=== PATIENT | male | born 1945 | race Caucasian/White ===

== ENCOUNTER → 2020-09-12 | Outpatient (CLI) | payer MEDICARE, BC ==
[~2020-09-12] MED LIST: CLARITIN10 M2 PO; FENOFIBRATE160 MG PO; HYDROCHLOROTHIA25 MG PO; ISOSORBIDE MONO30 MG PO; LIPITOR TAB 2020 MG PO; LIPITOR20 MG PO; MULTAQ 400 MG400 MG PO; NITROSTAT0.4 MG SL; NORVASC10 MG PO; PRAVASTATIN SOD40 MG PO; PROAIR HFA8.5 GM INH; SINGULAIR10 MG PO; ST. JOSEPH ASPI81 M1 PO; SYMBICORT 80-10.2 GM INH; VESICARE5 MG PO; VITAMIN D350 MC3 PO; XARELTO20 MG PO; ZESTRIL40 MG PO
[2020-09-12 17:36] LABS: HEMOGLOBIN 14.5 gm/dl (14.0-17.5); RED BLOOD COUNT 4.57 M/UL (4.20-5.50); WHITE BLOOD COUNT 7.9 K/UL (4.5-11.0)
== END ==
LOC: LAB 16:59
PROVIDERS: Emergency Medicine
DX: I12.9 Hypertensive chronic kidney disease with stage 1 through stage 4 chronic kidney disease, or unspecified chronic kidney disease (principal); N18.2 Chronic kidney disease, stage 2 (mild); E78.2 Mixed hyperlipidemia; M10.071 Idiopathic gout, right ankle and foot; E55.9 Vitamin D deficiency, unspecified; R73.09 Other abnormal glucose; M54.2 Cervicalgia; I25.10 Atherosclerotic heart disease of native coronary artery without angina pectoris; R06.02 Shortness of breath; Z91.013 Allergy to seafood
CPT/HCPCS: 36415; 71046; 80053; 83880; 85025; 85379; 93005

== ENCOUNTER 2020-09-13 10:37 | Observation (INO) | payer MEDICARE, BC ==
[~2020-09-13] VITALS: Ht 172.7 cm; Wt 104.3 kg
[2020-09-13 11:44] LABS: HEMOGLOBIN 14.5 gm/dl (14.0-17.5); RED BLOOD COUNT 4.6 M/UL (4.20-5.50); WHITE BLOOD COUNT 7.2 K/UL (4.5-11.0)
[2020-09-13 12:30] LABS: BUN/CREATININE RATIO 13 (0-10)
[2020-09-13] MEDS ORDERED: LIPITOR20 MG PO (13:31)
[2020-09-13] MEDS ORDERED: XARELTO20 MG PO (13:31)
[2020-09-13] MEDS ORDERED: MULTAQ 400 MG400 MG PO (13:31)
[2020-09-13] MEDS ORDERED: FENOFIBRATE160 MG PO (13:31)
[2020-09-13] MEDS ORDERED: NORVASC10 MG PO (13:32)
[2020-09-13] MEDS ORDERED: PRAVASTATIN SOD40 MG PO (13:32)
[2020-09-13] MEDS ORDERED: ZESTRIL40 MG PO (13:32)
[2020-09-13] MEDS ORDERED: PROAIR HFA8.5 GM INH (13:33)
[2020-09-13] MEDS ORDERED: ISOSORBIDE MONO30 MG PO (13:33)
[2020-09-13] MEDS ORDERED: SYMBICORT 80-10.2 GM INH (13:33)
[2020-09-13] MEDS ORDERED: HYDROCHLOROTHIA25 MG PO (13:35)
[2020-09-14 01:03] LABS: HEMOGLOBIN 14.5 gm/dl (14.0-17.5); RED BLOOD COUNT 4.57 M/UL (4.20-5.50); WHITE BLOOD COUNT 7.8 K/UL (4.5-11.0)
[2020-10-14] MEDS ORDERED: CLARITIN10 M2 PO (08:36)
[2020-10-14] MEDS ORDERED: ST. JOSEPH ASPI81 M1 PO (08:36)
[2020-10-14] MEDS ORDERED: SINGULAIR10 MG PO (08:37)
[2020-10-14] MEDS ORDERED: VESICARE5 MG PO (08:37)
[2020-10-14] MEDS ORDERED: NITROSTAT0.4 MG SL (08:37)
== END 2020-09-14 14:30 | disposition home or self-care (01) ==
LOC: ER1 10:37 → CDU 13:19 → MED SURG 4 21:40
PROVIDERS: Physician Assistant; Physician Assistant Medical; ADMIT Internal Medicine
DX: I48.19 Other persistent atrial fibrillation (principal); I20.9 Angina pectoris, unspecified; I49.3 Ventricular premature depolarization; I47.2 Ventricular tachycardia; I10 Essential (primary) hypertension; E87.6 Hypokalemia; J90 Pleural effusion, not elsewhere classified; E78.5 Hyperlipidemia, unspecified; J45.909 Unspecified asthma, uncomplicated; I35.0 Nonrheumatic aortic (valve) stenosis; R79.1 Abnormal coagulation profile; G47.33 Obstructive sleep apnea (adult) (pediatric); Z20.822 Contact with and (suspected) exposure to COVID-19; Z79.01 Long term (current) use of anticoagulants; Z79.82 Long term (current) use of aspirin; Z79.899 Other long term (current) drug therapy; Z91.013 Allergy to seafood
CPT/HCPCS: 36415; 80048; 80053; 82550; 82553; 83735; 83874; 83880; 84439; 84443; 84484; 85025; 85027; 85379; 93005; 96374; 99285; G0378; J1940; Q9967; U0002

== ENCOUNTER → 2020-09-19 | Outpatient (CLI) | payer MEDICARE, BC | LOC: HEART 5 15:14 | DX: I48.91 Unspecified atrial fibrillation (principal); R06.02 Shortness of breath; I08.3 Combined rheumatic disorders of mitral, aortic and tricuspid valves; I27.20 Pulmonary hypertension, unspecified | CPT/HCPCS: 93306 ==

== ENCOUNTER → 2020-10-12 | Outpatient (CLI) | payer MEDICARE, BC ==
[~2020-10-12] MED LIST changes: +AMIODARONE HCL200 MG PO; +ASPIRIN EC81 MG PO; +FUROSEMIDE40 MG PO; +K-DUR TAB 10 M10 MEQ PO; +LASIX 40 MG TAB40 MG PO; +LASIX40 MG PO; +PERCOCET 5/325 T1 EA PO; +POTASSIUM CHLO20 ME1 PO
[2020-10-12 09:34] LABS: HEMOGLOBIN 12.9 gm/dl (14.0-17.5); RED BLOOD COUNT 4.13 M/UL (4.20-5.50); WHITE BLOOD COUNT 5.6 K/UL (4.5-11.0)
== END ==
LOC: LAB 08:37
PROVIDERS: Internal Medicine Cardiovascular Disease
DX: I48.19 Other persistent atrial fibrillation (principal); I10 Essential (primary) hypertension; R06.02 Shortness of breath; Z01.812 Encounter for preprocedural laboratory examination; Z20.822 Contact with and (suspected) exposure to COVID-19
CPT/HCPCS: 36415; 80048; 85025; U0003

== ENCOUNTER → 2020-10-14 | Outpatient (CLI) | payer MEDICARE, BC | LOC: CATH 07:53 | DX: I25.10 Atherosclerotic heart disease of native coronary artery without angina pectoris (principal); I48.19 Other persistent atrial fibrillation; I35.0 Nonrheumatic aortic (valve) stenosis; I42.9 Cardiomyopathy, unspecified; I45.89 Other specified conduction disorders; I27.20 Pulmonary hypertension, unspecified; I11.0 Hypertensive heart disease with heart failure; I50.22 Chronic systolic (congestive) heart failure; I49.5 Sick sinus syndrome; J45.20 Mild intermittent asthma, uncomplicated; E78.5 Hyperlipidemia, unspecified; G47.33 Obstructive sleep apnea (adult) (pediatric); E55.9 Vitamin D deficiency, unspecified; E78.00 Pure hypercholesterolemia, unspecified; I49.3 Ventricular premature depolarization; Z96.659 Presence of unspecified artificial knee joint; Z79.82 Long term (current) use of aspirin; Z79.01 Long term (current) use of anticoagulants; Z79.899 Other long term (current) drug therapy | CPT/HCPCS: 71045; 92960; 99152; 99153; C1751; C1769; C1894; J1644; J2250; J2930; J3010; J7030; Q9967 ==

== ENCOUNTER 2020-10-26 22:27 | Inpatient (IN) | payer MEDICARE, BC ==
[~2020-10-26] VITALS: Ht 175.3 cm; Wt 96.2 kg
[~2020-10-26 22:27] MED LIST changes: -AMIODARONE HCL200 MG PO; -ASPIRIN EC81 MG PO; -FUROSEMIDE40 MG PO; -K-DUR TAB 10 M10 MEQ PO; -LASIX 40 MG TAB40 MG PO; -LASIX40 MG PO; -LIPITOR TAB 2020 MG PO; -PERCOCET 5/325 T1 EA PO; -POTASSIUM CHLO20 ME1 PO; -VITAMIN D350 MC3 PO
[2020-10-26 23:01] LABS: HEMOGLOBIN 14.2 gm/dl (14.0-17.5); RED BLOOD COUNT 4.53 M/UL (4.20-5.50); WHITE BLOOD COUNT 15.8 K/UL (4.5-11.0)
[2020-10-26 23:24] LABS: BUN/CREATININE RATIO 14 (0-10)
[2020-10-27 04:34] LABS: HEMOGLOBIN 13.1 gm/dl (14.0-17.5); RED BLOOD COUNT 4.23 M/UL (4.20-5.50); WHITE BLOOD COUNT 18.3 K/UL (4.5-11.0)
[2020-10-27 04:57] LABS: BUN/CREATININE RATIO 14 (0-10)
[2020-10-27] MEDS ORDERED: VITAMIN D350 MC3 PO (08:38)
[2020-10-27] MEDS ORDERED: LIPITOR TAB 2020 MG PO (10:34)
[2020-10-27 11:16] LABS: BUN/CREATININE RATIO 16 (0-10)
[2020-10-28 02:49] LABS: HEMOGLOBIN 12.8 gm/dl (14.0-17.5); RED BLOOD COUNT 4.15 M/UL (4.20-5.50); WHITE BLOOD COUNT 17.3 K/UL (4.5-11.0)
[2020-10-28 03:07] LABS: BUN/CREATININE RATIO 21 (0-10)
[2020-10-28 10:49] LABS: BUN/CREATININE RATIO 23 (0-10)
[2020-10-29 12:13] LABS: HEMOGLOBIN 12.2 gm/dl (14.0-17.5); RED BLOOD COUNT 3.99 M/UL (4.20-5.50)
[2020-10-29 12:14] LABS: WHITE BLOOD COUNT 10.1 K/UL (4.5-11.0)
[2020-10-29 12:28] LABS: BUN/CREATININE RATIO 32 (0-10)
== END 2020-10-29 13:18 | disposition short-term general hospital (02) | DRG 280 ==
LOC: ER1 22:27 → PROG CARE 10-27 00:40 → CDU 10-27 00:40 → PROG CARE 10-27 13:03
PROVIDERS: Emergency Medicine; Internal Medicine Infectious Disease; ADMIT Internal Medicine
DX: I11.0 Hypertensive heart disease with heart failure (principal); I21.A1 Myocardial infarction type 2; J96.01 Acute respiratory failure with hypoxia; I48.19 Other persistent atrial fibrillation; E87.1 Hypo-osmolality and hyponatremia; I47.2 Ventricular tachycardia; I50.23 Acute on chronic systolic (congestive) heart failure; I25.10 Atherosclerotic heart disease of native coronary artery without angina pectoris; Z20.822 Contact with and (suspected) exposure to COVID-19; I35.0 Nonrheumatic aortic (valve) stenosis; E66.9 Obesity, unspecified; I27.20 Pulmonary hypertension, unspecified; E87.6 Hypokalemia; E78.5 Hyperlipidemia, unspecified; J45.909 Unspecified asthma, uncomplicated; I25.5 Ischemic cardiomyopathy; I49.5 Sick sinus syndrome; G47.33 Obstructive sleep apnea (adult) (pediatric); Z96.651 Presence of right artificial knee joint; Z96.611 Presence of right artificial shoulder joint; Z98.890 Other specified postprocedural states; Z79.01 Long term (current) use of anticoagulants; Z79.82 Long term (current) use of aspirin; Z79.899 Other long term (current) drug therapy; Z91.013 Allergy to seafood; Z68.33 Body mass index [BMI] 33.0-33.9, adult
CPT/HCPCS: 36415; 36600; 71045; 80048; 80053; 81001; 82550; 82553; 82803; 83605; 83735; 83880; 84100; 84132; 84443; 84484; 85025; 85379; 85610; 87040; 87086; 94660; 94760; 96374; 99285; J1335; J1940; J3480; J7030; U0002

== ENCOUNTER 2020-11-23 23:52 | Emergency (ER) | payer MEDICARE, BC ==
[~2020-11-23 23:52] MED LIST changes: +LIPITOR TAB 2020 MG PO; +VITAMIN D350 MC3 PO
[2020-11-24 01:17] LABS: HEMOGLOBIN 8.1 gm/dl (14.0-17.5); RED BLOOD COUNT 2.7 M/UL (4.20-5.50); WHITE BLOOD COUNT 12.1 K/UL (4.5-11.0)
[2020-11-24] MEDS ORDERED: POTASSIUM CHLO20 ME1 PO (23:03)
[2020-11-24] MEDS ORDERED: FUROSEMIDE40 MG PO (23:03)
[2020-11-24] MEDS ORDERED: AMIODARONE HCL200 MG PO (23:05)
[2020-11-24] MEDS ORDERED: PERCOCET 5/325 T1 EA PO (23:05)
[2020-11-24] MEDS ORDERED: ASPIRIN EC81 MG PO (23:07)
[2020-11-24] MEDS ORDERED: CLARITIN10 M2 PO (23:07)
== END 2020-11-25 10:41 | disposition short-term general hospital (02) ==
LOC: ER1 23:52
PROVIDERS: Emergency Medicine
DX: I26.99 Other pulmonary embolism without acute cor pulmonale (principal); D64.9 Anemia, unspecified; I25.10 Atherosclerotic heart disease of native coronary artery without angina pectoris; I10 Essential (primary) hypertension; Z95.1 Presence of aortocoronary bypass graft; Z20.822 Contact with and (suspected) exposure to COVID-19
CPT/HCPCS: 71045; 80053; 82550; 82553; 83735; 83874; 83880; 84100; 84484; 85014; 85018; 85025; 85379; 85610; 85730; 86850; 86900; 86901; 93005; 94760; 96374; 99285; J1644; J7030; Q9967; U0002

== ENCOUNTER 2020-12-01 00:04 | Emergency (ER) | payer MEDICARE, BC ==
[~2020-12-01 00:04] MED LIST changes: +AMIODARONE HCL200 MG PO; +ASPIRIN EC81 MG PO; +FUROSEMIDE40 MG PO; +PERCOCET 5/325 T1 EA PO; +POTASSIUM CHLO20 ME1 PO
[2020-12-01 01:18] LABS: HEMOGLOBIN 9.4 gm/dl (14.0-17.5); RED BLOOD COUNT 3.12 M/UL (4.20-5.50); WHITE BLOOD COUNT 8.5 K/UL (4.5-11.0)
[2020-12-01] MEDS ORDERED: LASIX 40 MG TAB40 MG PO (05:59)
[2020-12-01] MEDS ORDERED: K-DUR TAB 10 M10 MEQ PO (06:10)
[2020-12-01 08:24] LABS: BODY FLUID SOURCE PLEURAL; RBC (AUTOMATED) 63500 (0-100000); WBC (AUTOMATED) 533 (0-500)
[2020-12-01 08:25] LABS: MONONUCLEAR CELLS 75 (75-100); POLYMORPHONUCLEAR % 25 (0-25)
[2020-12-01 08:36] LABS: TOTAL PROTEIN, BODY FLUID 2.7 gm/dL
== END 2020-12-01 06:42 | disposition home or self-care (01) ==
LOC: ER1 00:04
PROVIDERS: Family Medicine; Physician Assistant
DX: R06.00 Dyspnea, unspecified (principal); I25.10 Atherosclerotic heart disease of native coronary artery without angina pectoris; E78.5 Hyperlipidemia, unspecified; J45.909 Unspecified asthma, uncomplicated; I10 Essential (primary) hypertension; I48.91 Unspecified atrial fibrillation; Z95.1 Presence of aortocoronary bypass graft
CPT/HCPCS: 32554; 71045; 80053; 82550; 82553; 82945; 83874; 83880; 84157; 84484; 85025; 85379; 85610; 85730; 87070; 87205; 89051; 99285

== ENCOUNTER → 2020-12-13 | Outpatient (CLI) | payer MEDICARE, BC ==
[~2020-12-13] MED LIST changes: +K-DUR TAB 10 M10 MEQ PO; +LASIX 40 MG TAB40 MG PO; +LASIX40 MG PO
== END ==
LOC: WCC 14:00
DX: T81.31XA Disruption of external operation (surgical) wound, not elsewhere classified, initial encounter (principal); R60.1 Generalized edema; I25.10 Atherosclerotic heart disease of native coronary artery without angina pectoris; I11.0 Hypertensive heart disease with heart failure; I50.9 Heart failure, unspecified; I48.19 Other persistent atrial fibrillation; Z98.890 Other specified postprocedural states; Z79.01 Long term (current) use of anticoagulants; Z79.899 Other long term (current) drug therapy

== ENCOUNTER 2020-12-14 21:51 | Emergency (ER) | payer MEDICARE, BC ==
[~2020-12-14 21:51] MED LIST changes: -LASIX40 MG PO
[2020-12-14 22:36] LABS: HEMOGLOBIN 11.2 gm/dl (14.0-17.5); RED BLOOD COUNT 3.92 M/UL (4.20-5.50); WHITE BLOOD COUNT 8.6 K/UL (4.5-11.0)
[2020-12-15] MEDS ORDERED: LASIX40 MG PO (23:09)
[2020-12-15] MEDS ORDERED: K-DUR TAB 10 M10 MEQ PO (23:09)
== END 2020-12-15 03:05 | disposition home or self-care (01) ==
LOC: ER1 21:51
PROVIDERS: Physician Assistant
DX: I11.0 Hypertensive heart disease with heart failure (principal); I50.9 Heart failure, unspecified; I25.10 Atherosclerotic heart disease of native coronary artery without angina pectoris; I25.2 Old myocardial infarction; Z95.1 Presence of aortocoronary bypass graft; Z20.822 Contact with and (suspected) exposure to COVID-19
CPT/HCPCS: 36600; 71045; 80053; 82550; 82553; 82803; 83874; 83880; 84484; 85025; 85610; 85730; 93005; 94640; 94664; 96374; 99285; J1940; U0002

== ENCOUNTER 2020-12-15 20:18 | Emergency (ER) | payer MEDICARE, BC ==
[2020-12-15 21:33] LABS: RED BLOOD COUNT 3.87 M/UL (4.20-5.50); WHITE BLOOD COUNT 9.2 K/UL (4.5-11.0)
[2020-12-15] MEDS ORDERED: LASIX40 MG PO (23:09)
[2020-12-15] MEDS ORDERED: K-DUR TAB 10 M10 MEQ PO (23:09)
== END 2020-12-16 | disposition home or self-care (01) ==
LOC: ER1 20:18
PROVIDERS: Emergency Medicine
DX: I13.0 Hypertensive heart and chronic kidney disease with heart failure and stage 1 through stage 4 chronic kidney disease, or unspecified chronic kidney disease (principal); N18.9 Chronic kidney disease, unspecified; I50.9 Heart failure, unspecified; Z95.1 Presence of aortocoronary bypass graft; Z95.4 Presence of other heart-valve replacement
CPT/HCPCS: 36600; 71045; 80053; 82550; 82553; 82803; 83874; 83880; 84484; 85025; 85610; 93005; 94640; 94664; 94760; 96374; 99285; J1940

== ENCOUNTER 2021-01-22 10:23 | Emergency (ER) | payer MEDICARE, BC ==
[~2021-01-22 10:23] MED LIST changes: +LASIX40 MG PO
[2021-01-22 11:55] LABS: HEMOGLOBIN 10.4 gm/dl (14.0-17.5); RED BLOOD COUNT 3.78 M/UL (4.20-5.50); WHITE BLOOD COUNT 9.1 K/UL (4.5-11.0)
[2021-01-22 12:18] LABS: BUN/CREATININE RATIO 28 (0-10)
[2021-01-27] MEDS ORDERED: LAXATIVE5 M1 PO (08:31)
[2021-01-27] MEDS ORDERED: LEVOTHYROXINE25 MC1 PO (08:32)
[2021-01-27] MEDS ORDERED: COREG3.125 MG PO (08:32)
[2021-01-27] MEDS ORDERED: DULERA 100 MCG8.8 GM INH (08:32)
[2021-01-27] MEDS ORDERED: NITROSTAT0.4 MG SL (08:32)
[2021-01-27] MEDS ORDERED: RESTORIL7.5 MG PO (08:33)
[2021-01-27] MEDS ORDERED: PEPCID20 MG PO (08:33)
[2021-01-27] MEDS ORDERED: TYLENOL 8 HOUR650 MG PO (08:34)
[2021-01-27] MEDS ORDERED: WARFARIN SODIUM3 MG PO (08:38)
== END 2021-01-22 15:32 | disposition left against medical advice (07) ==
LOC: ER1 10:23 → CDU 14:26
PROVIDERS: Nurse Practitioner
DX: I48.91 Unspecified atrial fibrillation (principal); E78.5 Hyperlipidemia, unspecified; I11.0 Hypertensive heart disease with heart failure; I50.9 Heart failure, unspecified; Z20.822 Contact with and (suspected) exposure to COVID-19
CPT/HCPCS: 71045; 80053; 82550; 82553; 83874; 83880; 84484; 85025; 85379; 96374; 99285; J1940; Q9967; U0002

== ENCOUNTER → 2021-01-27 | Day surgery (SDC) | payer MEDICARE, BC ==
[~2021-01-27] MED LIST changes: +COREG3.125 MG PO; +DULERA 100 MCG8.8 GM INH; +LAXATIVE5 M1 PO; +LEVOTHYROXINE25 MC1 PO; +PEPCID20 MG PO; +RESTORIL7.5 MG PO; +TYLENOL 8 HOUR650 MG PO; +WARFARIN SODIUM3 MG PO
[2021-01-27 08:22] LABS: HEMOGLOBIN 10.2 gm/dl (14.0-17.5); RED BLOOD COUNT 3.74 M/UL (4.20-5.50)
[2021-01-27 08:37] LABS: BUN/CREATININE RATIO 19 (0-10)
== END | disposition home or self-care (01) ==
LOC: CATH 07:30
PROVIDERS: Internal Medicine Cardiovascular Disease
DX: I48.19 Other persistent atrial fibrillation (principal); I11.0 Hypertensive heart disease with heart failure; I50.22 Chronic systolic (congestive) heart failure; I25.5 Ischemic cardiomyopathy; I25.10 Atherosclerotic heart disease of native coronary artery without angina pectoris; I42.9 Cardiomyopathy, unspecified; I49.5 Sick sinus syndrome; E78.5 Hyperlipidemia, unspecified; E78.00 Pure hypercholesterolemia, unspecified; I08.3 Combined rheumatic disorders of mitral, aortic and tricuspid valves; J45.20 Mild intermittent asthma, uncomplicated; I27.20 Pulmonary hypertension, unspecified; G47.33 Obstructive sleep apnea (adult) (pediatric); R94.31 Abnormal electrocardiogram [ECG] [EKG]; E55.9 Vitamin D deficiency, unspecified; Z79.82 Long term (current) use of aspirin; Z79.01 Long term (current) use of anticoagulants; Z91.013 Allergy to seafood; Z88.8 Allergy status to other drugs, medicaments and biological substances; Z95.1 Presence of aortocoronary bypass graft; Z20.822 Contact with and (suspected) exposure to COVID-19; Z79.899 Other long term (current) drug therapy; Z98.890 Other specified postprocedural states
CPT/HCPCS: 36415; 80048; 81001; 85025; 93005; 93312; 93320; J1200; J1742; J2250; J2310; J3010; J7040

== ENCOUNTER → 2021-01-30 | Outpatient (CLI) | payer MEDICARE, BC | LOC: WCC 09:30 | DX: T81.31XD Disruption of external operation (surgical) wound, not elsewhere classified, subsequent encounter (principal); I11.0 Hypertensive heart disease with heart failure; I50.9 Heart failure, unspecified; I25.10 Atherosclerotic heart disease of native coronary artery without angina pectoris; I48.19 Other persistent atrial fibrillation; R60.1 Generalized edema; Z98.890 Other specified postprocedural states ==

== ENCOUNTER → 2021-02-07 | Outpatient (CLI) | payer MEDICARE, BC | LOC: WCC 13:48 | DX: T81.31XA Disruption of external operation (surgical) wound, not elsewhere classified, initial encounter (principal); Z95.1 Presence of aortocoronary bypass graft; Z95.2 Presence of prosthetic heart valve; Z79.01 Long term (current) use of anticoagulants; I11.0 Hypertensive heart disease with heart failure; I50.9 Heart failure, unspecified; I48.19 Other persistent atrial fibrillation; R60.1 Generalized edema; I25.10 Atherosclerotic heart disease of native coronary artery without angina pectoris; Z98.890 Other specified postprocedural states ==

== ENCOUNTER → 2021-02-15 | Outpatient (CLI) | payer MEDICARE, BC | END | disposition home or self-care (01) | LOC: WCC 11:03 | DX: T81.31XA Disruption of external operation (surgical) wound, not elsewhere classified, initial encounter (principal); I11.0 Hypertensive heart disease with heart failure; I50.9 Heart failure, unspecified; I25.10 Atherosclerotic heart disease of native coronary artery without angina pectoris; I48.19 Other persistent atrial fibrillation; R60.1 Generalized edema; Z98.890 Other specified postprocedural states | CPT/HCPCS: 97597 ==

== ENCOUNTER → 2021-02-22 | Outpatient (CLI) | payer MEDICARE, BC | LOC: WCC 07:35 | DX: T81.31XA Disruption of external operation (surgical) wound, not elsewhere classified, initial encounter (principal); I25.10 Atherosclerotic heart disease of native coronary artery without angina pectoris; I11.0 Hypertensive heart disease with heart failure; I50.9 Heart failure, unspecified; I48.19 Other persistent atrial fibrillation; Z98.890 Other specified postprocedural states ==

== ENCOUNTER → 2021-03-08 | Outpatient (CLI) | payer MEDICARE, BC | END | disposition home or self-care (01) | LOC: WCC 07:17 | PROC: 0JBN0ZZ Excision of Right Lower Leg Subcutaneous Tissue and Fascia, Open Approach (ICD-10-PCS; principal; 2021-03-08) | DX: T81.31XA Disruption of external operation (surgical) wound, not elsewhere classified, initial encounter (principal); I25.10 Atherosclerotic heart disease of native coronary artery without angina pectoris; I11.0 Hypertensive heart disease with heart failure; I50.9 Heart failure, unspecified; I48.19 Other persistent atrial fibrillation; J45.909 Unspecified asthma, uncomplicated; M10.9 Gout, unspecified; M19.90 Unspecified osteoarthritis, unspecified site; Z95.1 Presence of aortocoronary bypass graft; Z79.899 Other long term (current) drug therapy; Z98.890 Other specified postprocedural states; Y83.8 Other surgical procedures as the cause of abnormal reaction of the patient, or of later complication, without mention of misadventure at the time of the procedure | CPT/HCPCS: 97597 ==

== ENCOUNTER → 2021-03-22 | Outpatient (CLI) | payer MEDICARE, BC | LOC: WCC 07:31 | DX: T81.31XD Disruption of external operation (surgical) wound, not elsewhere classified, subsequent encounter (principal); I25.10 Atherosclerotic heart disease of native coronary artery without angina pectoris; I11.0 Hypertensive heart disease with heart failure; I50.9 Heart failure, unspecified; Z98.890 Other specified postprocedural states; I48.19 Other persistent atrial fibrillation; R60.1 Generalized edema | CPT/HCPCS: G0463 ==

== ENCOUNTER → 2021-04-06 | Outpatient (CLI) | payer MEDICARE, BC ==
[2021-04-06 09:49] LABS: HEMOGLOBIN 11.3 gm/dl (14.0-17.5); RED BLOOD COUNT 4.06 M/UL (4.20-5.50); WHITE BLOOD COUNT 6.2 K/UL (4.5-11.0)
[2021-04-07 08:13] LABS: CALCIUM, SERUM 9.2 mg/dL (8.6-10.2); CREATININE, SERUM 1.37 mg/dL (0.76-1.27); POTASSIUM, SERUM 4.6 mmol/L (3.5-5.2)
== END ==
LOC: LAB 08:20
PROVIDERS: Internal Medicine Cardiovascular Disease
DX: I48.91 Unspecified atrial fibrillation (principal); I11.0 Hypertensive heart disease with heart failure; I50.22 Chronic systolic (congestive) heart failure; Z51.81 Encounter for therapeutic drug level monitoring
CPT/HCPCS: 36415; 80048; 85025; 85610

== ENCOUNTER → 2021-06-21 | Outpatient (CLI) | payer MEDICARE, BC ==
[~2021-06-21] MED LIST changes: +ALDACTONE 25MG25 MG PO; +BUMETANIDE2 MG PO; +CLINDAMYCIN HC300 MG PO; +COLACE100 MG PO; +HYDROCODON-ACE1 EAC4 PO; +LEVOFLOXACIN500 MG PO; +LISINOPRIL2.5 MG PO
== END ==
LOC: HEART 5 08:51
DX: R06.02 Shortness of breath (principal); Z79.899 Other long term (current) drug therapy
CPT/HCPCS: 94060; 94729

== ENCOUNTER 2021-07-03 10:47 | Observation (INO) | payer MEDICARE, BC ==
[~2021-07-03] VITALS: Ht 175.3 cm; Wt 97.5 kg
[2021-07-03 11:36] LABS: HEMOGLOBIN 12.5 gm/dl (14.0-17.5); RED BLOOD COUNT 4.38 M/UL (4.20-5.50)
[2021-07-03 12:18] LABS: BUN/CREATININE RATIO 20 (0-10)
[2021-07-03] MEDS ORDERED: PROAIR HFA8.5 GM INH (17:44)
[2021-07-03] MEDS ORDERED: WIXELA 250-501 EACH PO (17:47)
[2021-07-03] MEDS ORDERED: LEVOTHYROXINE75 MCG PO (17:48)
[2021-07-03] MEDS ORDERED: LISINOPRIL2.5 MG PO (17:49)
[2021-07-03] MEDS ORDERED: BUMETANIDE2 MG PO (17:50)
[2021-07-03] MEDS ORDERED: CARVEDILOL3.125 MG PO (17:51)
[2021-07-03] MEDS ORDERED: SINGULAIR10 MG PO (17:52)
[2021-07-03] MEDS ORDERED: WARFARIN SODIUM2 MG PO (17:52)
[2021-07-03] MEDS ORDERED: POTASSIUM CHLO10 ME1 PO (17:53)
[2021-07-03] MEDS ORDERED: AMIODARONE HCL200 MG PO (17:55)
[2021-07-04 08:13] LABS: HEMOGLOBIN 11.5 gm/dl (14.0-17.5); RED BLOOD COUNT 4.06 M/UL (4.20-5.50); WHITE BLOOD COUNT 5.9 K/UL (4.5-11.0)
[2021-07-04 08:37] LABS: BUN/CREATININE RATIO 20 (0-10)
[2021-07-04] MEDS ORDERED: ATORVASTATIN CA80 MG PO (17:49)
[2021-07-05 02:11] LABS: RED BLOOD COUNT 4.23 M/UL (4.20-5.50); WHITE BLOOD COUNT 6.5 K/UL (4.5-11.0)
[2021-07-05 02:36] LABS: BUN/CREATININE RATIO 20 (0-10)
[2021-07-05] MEDS ORDERED: BUMETANIDE1 MG PO ×2 (15:02→15:28)
[2021-07-05] MEDS ORDERED: DOXYCYCLINE HY100 M2 PO (15:02)
[2021-07-05] MEDS ORDERED: AMOX TR-K CLV1 EAC4 PO (15:02)
== END 2021-07-05 16:35 | disposition home or self-care (01) ==
LOC: ER1 10:47 → CDU 16:51 → PROG CARE 16:51
PROVIDERS: Nurse Practitioner; ADMIT Internal Medicine
DX: I11.0 Hypertensive heart disease with heart failure (principal); I50.23 Acute on chronic systolic (congestive) heart failure; J96.01 Acute respiratory failure with hypoxia; I25.10 Atherosclerotic heart disease of native coronary artery without angina pectoris; I48.91 Unspecified atrial fibrillation; I25.5 Ischemic cardiomyopathy; I97.641 Postprocedural seroma of a circulatory system organ or structure following cardiac bypass; I27.20 Pulmonary hypertension, unspecified; E78.5 Hyperlipidemia, unspecified; E03.9 Hypothyroidism, unspecified; I49.5 Sick sinus syndrome; G47.33 Obstructive sleep apnea (adult) (pediatric); E66.9 Obesity, unspecified; Z20.822 Contact with and (suspected) exposure to COVID-19; Z95.1 Presence of aortocoronary bypass graft; Z95.810 Presence of automatic (implantable) cardiac defibrillator; Z79.01 Long term (current) use of anticoagulants; Z79.899 Other long term (current) drug therapy; Z86.711 Personal history of pulmonary embolism; Z68.31 Body mass index [BMI] 31.0-31.9, adult; Z91.013 Allergy to seafood
CPT/HCPCS: ECHO; 0240U; 36415; 36600; 71045; 71046; 80048; 80053; 81001; 82550; 82553; 82803; 83735; 83880; 84439; 84443; 84484; 85025; 85027; 85379; 85610; 86140; 93005; 93306; 96374; 96376; 99285; G0378; J1940; Q9967

== ENCOUNTER → 2021-07-17 | Outpatient (CLI) | payer MEDICARE, BC ==
[~2021-07-17] MED LIST changes: +AMOX TR-K CLV1 EAC4 PO; +ATORVASTATIN CA80 MG PO; +BUMETANIDE1 MG PO; +CARVEDILOL3.125 MG PO; +DOXYCYCLINE HY100 M2 PO; +LEVOTHYROXINE75 MCG PO; +POTASSIUM CHLO10 ME1 PO; +WARFARIN SODIUM2 MG PO; +WIXELA 250-501 EACH PO
== END ==
LOC: LAB 12:12
PROVIDERS: Internal Medicine
DX: I50.9 Heart failure, unspecified (principal); R18.8 Other ascites; J90 Pleural effusion, not elsewhere classified
CPT/HCPCS: 36415; 71046; 80053

== ENCOUNTER → 2021-07-31 | Outpatient (CLI) | payer MEDICARE, BC | LOC: LAB 10:12 | PROVIDERS: Emergency Medicine | DX: I12.9 Hypertensive chronic kidney disease with stage 1 through stage 4 chronic kidney disease, or unspecified chronic kidney disease (principal); N18.2 Chronic kidney disease, stage 2 (mild); E78.2 Mixed hyperlipidemia; E03.8 Other specified hypothyroidism | CPT/HCPCS: 36415; 80053; 84443 ==

== ENCOUNTER → 2021-09-26 | Outpatient (CLI) | payer MEDICARE, BC | LOC: LAB 07:25 | PROVIDERS: Emergency Medicine | DX: I10 Essential (primary) hypertension (principal); E78.2 Mixed hyperlipidemia; E55.9 Vitamin D deficiency, unspecified; I25.10 Atherosclerotic heart disease of native coronary artery without angina pectoris | CPT/HCPCS: 36415; 80048 ==

== ENCOUNTER → 2021-12-21 | Outpatient (CLI) | payer MEDICARE, BC | LOC: KOH-I 10:57 | DX: J20.9 Acute bronchitis, unspecified (principal); R06.2 Wheezing | CPT/HCPCS: 71046 ==